=== PATIENT | male | born 1980 | race African-American/Black ===

== ENCOUNTER 2017-05-30 19:42 | Emergency (ER) | payer OTHER ==
[2017-05-30] MEDS ORDERED: HYDROcodone/Acetaminophen 5/325 mg Tablet ONE (22:20)
[2017-05-30] MEDS ORDERED: Proparacaine 0.5% Opth 15 ML BOT ONE (22:44)
[2017-05-30] MEDS ORDERED: Fluorescein Opthalmic Strip ONE ×2 (22:48)
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
== END 2017-05-31 00:27 | disposition home or self-care (01) ==
LOC: ERS 19:42
DX: H11.33 Conjunctival hemorrhage, bilateral (principal); Y04.0XXA Assault by unarmed brawl or fight, initial encounter
CPT/HCPCS: 70480

== ENCOUNTER 2024-07-14 09:28 | Emergency (ER) | payer OTHER ==
[2024-07-14] MEDS ORDERED: Acetaminophen 500 MG TAB ONE (10:51)
[2024-07-14] MEDS ORDERED: methylPREDNISolone Sod Succ/PF 125 MG/2 ML VIAL ONE (10:52)
[2024-07-14] MEDS ORDERED: Famotidine/PF 20 mg/2ml Vial ONE (10:52)
[2024-07-14] MEDS ORDERED: diphenhydrAMINE 50 MG/ML VIAL ONE (10:52)
[2024-07-14 11:07] LABS: #Basophils 0.05 10x3/uL (0.0-0.2); %Basophils 0.6 % (0.0-1.0); %Eosinophils 1.7 % (0.0-10.0); %Lymphocytes 30.7 % (21.0-51.0); %Monocytes 7.1 % (0.0-10.0); %Neutrophils 58.9 % (42.0-75.0); Hematocrit 50.9 % (42.0-52.0); Hemoglobin 17.3 g/dL (14.0-18.0); Mean Corpuscular Hemoglobin 29.9 pg (27.0-31.0); Mean Corpuscular Volume 87.9 fL (78.0-98.0); Platelet Count 244 10x3/uL (130-400); RBC Distribution Width 14.7 % (11.5-14.5); Red Blood Cell (RBC) Count 5.79 mill/uL (4.70-6.10)
[2024-07-14 11:32] LABS: Troponin I Less than 0.010 ng/mL (< 0.028)
[2024-07-14 11:33] LABS: ALT (SGPT) 36 U/L (8-55); AST (SGOT) 30 U/L (5-34); Albumin 3.8 g/dL (3.5-5.0); Alkaline Phosphatase 106 U/L (40-110); Anion Gap 13 mmol/L (10-20); BUN (Urea Nitrogen) 14 mg/dL (8.9-20.6); Bilirubin, Total 0.3 mg/dL (0.2-1.2); Calc. Creatinine Clearance 0 mL/min (70-130); Calcium 9.2 mg/dL (7.8-10.44); Carbon Dioxide 24 mmol/L (22-29); Chloride 105 mmol/L (98-107); Estimated GFR 101; Globulin 3.5 g/dL (2.4-3.5); Glucose 89 mg/dL (70-105); Potassium 4.4 mmol/L (3.5-5.1); Protein, Total 7.3 g/dL (6.0-8.3); Sodium 138 mmol/L (136-145)
[2024-07-14 11:50] LABS: Bacteria/HPF None Seen HPF (None Seen); Bilirubin Negative (Negative); Blood, Urine Negative (Negative); CAUTI Indications for Culture Dysuria,urgency,freq; Clarity Clear (Clear); Glucose, Urine (Dipstick) Normal (Negative); Ketone, Urine Negative (Negative); Leukocyte Negative Leu/uL (Negative); Nitrite Negative (Negative); Protein, Urine (Dipstick) Negative (Neg-Trace); RBC/HPF 0-3 HPF (0-3); Specific Gravity, Urine 1.026 (1.002-1.036); Squamous Epithelial None Seen HPF (0-3); Urobilinogen Normal mg/dL (Less than 2); WBC/HPF 0-3 HPF (0-3)
[2024-07-14 11:55] LABS: Urine Culture Reflex No No
== END 2024-07-14 13:19 | disposition home or self-care (01) ==
LOC: ERS 09:28
DX: K04.7 Periapical abscess without sinus (principal); T78.40XA Allergy, unspecified, initial encounter
CPT/HCPCS: 71045; 80053; 81001; 84484; 85025; 93005; 96374; 96375; J1200; J2919; J3490